=== PATIENT | male | born 1990 | race African-American/Black ===

== ENCOUNTER 2021-01-01 00:34 | Emergency (ER) | payer OTHER ==
[~2021-01-01] VITALS: Ht 175.3 cm; Wt 99.8 kg
[2021-01-01] MEDS ORDERED: FLEXERIL PO (02:39)
[2021-01-01] MEDS ORDERED: ANAPROX DS550 MG PO (02:39)
[2021-01-01 02:56] VITALS: BP 105/72
== END 2021-01-01 02:57 | disposition home or self-care (01) ==
LOC: ER 00:34
DX: S00.03XA Contusion of scalp, initial encounter (principal); F17.210 Nicotine dependence, cigarettes, uncomplicated; Y08.89XA Assault by other specified means, initial encounter; Y93.89 Activity, other specified; Y92.89 Other specified places as the place of occurrence of the external cause; Y99.8 Other external cause status